=== PATIENT | female | born 1990 | race Caucasian/White ===

== ENCOUNTER 2017-04-29 12:05 | Emergency (ER) | payer OTHER ==
[~2017-04-29] VITALS: Ht 162.6 cm; Wt 81.3 kg
[2017-04-29] MEDS ORDERED: SODIUM CHLORIDE 0.9% 1,000 ML IV ONE (12:54)
[2017-04-29] MEDS ORDERED: ONDANSETRON HCL 4 MG/2 ML VIAL IVP ONE (13:00)
[2017-04-29] MEDS ORDERED: BISMUTH SUBSALICYLATE 524 MG/30 ML SUSPENSION UDCUP PO ONE (13:15)
[2017-04-29] MEDS ORDERED: ONDANSETRON HCL 4 MG TABLET PO ONE (13:15)
[2017-04-29] MEDS ORDERED: LORazepam 1 MG TABLET PO ONE (13:30)
[2017-04-29 13:45] LABS: INFLUENZA TYPE A NEGATIVE FOR TYPE A (NEGATIVE); INFLUENZA TYPE B NEGATIVE FOR TYPE B (NEGATIVE)
[2017-04-29 13:56] VITALS: BP 133/64
== END 2017-04-29 14:12 | disposition home or self-care (01) ==
LOC: EDSEX 12:10 → EMS 12:10
DX: R11.2 Nausea with vomiting, unspecified (principal); R19.7 Diarrhea, unspecified; F15.10 Other stimulant abuse, uncomplicated; F41.9 Anxiety disorder, unspecified; F17.210 Nicotine dependence, cigarettes, uncomplicated
CPT/HCPCS: 87804; 99284; 99406; J7030; Q0162; J2405

== ENCOUNTER 2024-11-26 15:12 | Inpatient (IN) | payer OTHER ==
[~2024-11-26] VITALS: Ht 162.6 cm; Wt 87.1 kg
[~2024-11-26 15:12] MED LIST: AMOX-457 PO
[2024-11-26] MEDS: ONDANSETRON 4 MG TABLET PO ONE (16:05)
[2024-11-26] MEDS ORDERED: KETOROLAC TROMETHAMINE 15 MG/ML VIAL IVP PRN (22:15)
[2024-11-26] MEDS ORDERED: ONDANSETRON HCL 4 MG/2 ML VIAL IVP PRN (22:15)
[2024-11-26] MEDS ORDERED: ACETAMINOPHEN 325 MG TABLET PO PRN (22:15)
[2024-11-26] MEDS: NALOXONE HCL 0.4 MG/ML VIAL IVP SCH (23:30)
[2024-11-27] VITALS: BP 139/84; PULSE 84; RESP 18; TEMP 97.7; O2SAT 97
[2024-11-27] MEDS: HEPARIN SODIUM,PORCINE 5,000 UNITS/ML VIAL SQ SCH
[2024-11-27 08:50] VITALS: BP 109/57; PULSE 119; RESP 16; TEMP 97.9; O2SAT 92
[2024-11-27] MEDS: DOCUSATE SODIUM 100 MG CAPSULE PO SCH (08:50)
[2024-11-27 12:00] VITALS: BP 119/81; PULSE 80; RESP 19; TEMP 98.4; O2SAT 99
[2024-11-27 16:40] VITALS: BP 130/74; PULSE 76; RESP 18; TEMP 98.2; O2SAT 97
[2024-11-27 20:00] VITALS: BP 107/68; PULSE 82; RESP 19; TEMP 98.6; O2SAT 98
[2024-11-28] VITALS: BP 108/73; PULSE 83; RESP 19; TEMP 100; O2SAT 100
[2024-11-28 04:00] VITALS: BP 111/66; PULSE 79; RESP 18; TEMP 98.5; O2SAT 98
[2024-11-28 08:08] VITALS: BP 109/67; PULSE 83; RESP 18; TEMP 98.2; O2SAT 99
[2024-11-28 12:30] VITALS: BP 108/64; PULSE 81; RESP 20; TEMP 98.8; O2SAT 98
[2024-11-28 15:40] VITALS: BP 118/70; PULSE 65; RESP 18; TEMP 97.9; O2SAT 100
[2024-11-28 20:20] VITALS: BP 120/78; PULSE 89; RESP 17; TEMP 97.9; O2SAT 99
[2024-11-29 00:41] VITALS: BP 103/69; PULSE 87; RESP 18; TEMP 98.4; O2SAT 98
[2024-11-29 03:41] VITALS: BP 104/63; PULSE 87; RESP 18; TEMP 97.9; O2SAT 95
[2024-11-29 09:07] VITALS: BP 127/81; PULSE 82; RESP 18; TEMP 98; O2SAT 98
[2024-11-29] MEDS ORDERED: SODIUM POLYSTYRENE SULFONATE 15 GM/60 ML SUSPENSION BOTTLE PR ONE (09:15)
[2024-11-29] MEDS: SODIUM POLYSTYRENE SULFONATE 15 GM/60 ML SUSPENSION BOTTLE PO ONE (09:44)
== END 2024-11-29 12:15 | DRG 918 ==
LOC: EMS 15:13 → EDH 22:15 → 5S 23:10
PROVIDERS: ADMIT Internal Medicine; ATTEND Internal Medicine
DX: T40.1X2A Poisoning by heroin, intentional self-harm, initial encounter (principal); S52.612A Displaced fracture of left ulna styloid process, initial encounter for closed fracture; F15.10 Other stimulant abuse, uncomplicated; F11.10 Opioid abuse, uncomplicated; Z68.33 Body mass index [BMI] 33.0-33.9, adult; E66.9 Obesity, unspecified; Z53.20 Procedure and treatment not carried out because of patient's decision for unspecified reasons; F17.200 Nicotine dependence, unspecified, uncomplicated; X58.XXXA Exposure to other specified factors, initial encounter; Y93.9 Activity, unspecified; Y92.89 Other specified places as the place of occurrence of the external cause; Y99.8 Other external cause status; Z91.199 Patient's noncompliance with other medical treatment and regimen due to unspecified reason
CPT/HCPCS: 71045; 71250; 72192; 74150; 93005; 99285; J2310; Q0162